=== PATIENT | female | born 1950 | race Caucasian/White ===

== ENCOUNTER → 2017-04-01 | Outpatient (CLI) | payer BC ==
[~2017-04-01] MED LIST: B CO1CAP PO; CALC-656 PO; CHOL10002 PO; CHOL200035 PO; CHOL50003 PO; ESCI5TAB PO; ESCT10T PO; ESTR1PAT32 TD; FERR240T9 PO; FISH OIL 1,2001 EAC1 PO; KRIL1CAP12 PO; LEVO75TA6 PO; LVT.05T PO; MAGN250T7 PO; MULT-974 PO; NF-ESOM40C PO; NIAC1CAP PO; OXYC-12 PO; ROSU5TAB PO; UBID1CAP51 PO; UBID200C PO; VIT1TABL26 PO; [UNRECOGNIZED DRUG - CODE] PO
--- NOTE | 2017-04-01 14:33 | Diagnostic Imaging Report ---
Bilateral screening mammogram 2D views with tomosynthesis The current study was also evaluated with a Computer Aided Detection (CAD) system. INDICATION: Screening. No current complaints stated on the questionnaire. COMPARISON: 01/23/2016. FINDINGS: Bilateral symmetric appearing retropectoral breast implants are seen. There are heterogeneously dense breast parenchymal densities noted which may decrease mammographic sensitivity. Benign-appearing calcifications are seen. Allowing for technique and positional differences, no suspicious change is seen. IMPRESSION: No significant change. ACR BI-RADS Category 2: Benign findings. Result letter will be mailed to the patient. Note: At least 10% of breast cancer is not imaged by mammography. Dictated by: Dictated on workstation # [id number]
== END ==
LOC: RAD 10:45
PROVIDERS: ATTEND Family Medicine
DX: Z12.31 Encounter for screening mammogram for malignant neoplasm of breast (principal)
CPT/HCPCS: 77067

== ENCOUNTER → 2017-12-10 | Outpatient (CLI) | payer MEDICARE ==
--- NOTE | 2017-12-10 20:05 | Diagnostic Imaging Report ---
INDICATION: Cough and congestion for several months. TECHNIQUE: Two-view chest at 1:38 p.m. CORRELATION STUDY: 08/31/2008. FINDINGS: The heart size, mediastinal configuration, and pulmonary vasculature are within normal limits. The lungs are clear with no consolidating infiltrate. There is no significant pleural effusion or pneumothorax. Relatively symmetric increased density at the lung apices, right greater than left, likely overlapping shadows of the anterior first ribs. Very questionable nodule which may correspond to this area superimposed over the superior thoracic spine as well. Mild rightward curvature of the thoracic spine. Partial visualization of the lumbar spinal fixation hardware. Bilateral breast implants are present. IMPRESSION: 1. Negative for acute cardiopulmonary abnormality. 2. There is slight nodularity suggested about the lung apices. This may very well be attributed to overlapping summation shadows of the first rib. However, given potential corresponding nodule in the lateral projection, lung apical nodule is not excluded. Either short-term followup two-view chest imaging to include apical lordotic views or CT imaging would be recommended. Dictated by: Dictated on workstation # [id number]
== END ==
LOC: RAD 12:35
PROVIDERS: ATTEND Family Medicine
DX: R05 Cough (principal); R09.89 Other specified symptoms and signs involving the circulatory and respiratory systems
CPT/HCPCS: 71046

== ENCOUNTER → 2017-12-24 | Outpatient (CLI) | payer MEDICARE ==
--- NOTE | 2017-12-24 10:29 | Diagnostic Imaging Report ---
PROCEDURE: CT chest without contrast. TECHNIQUE: Multiple contiguous axial images were obtained through the chest without the use of intravenous contrast. INDICATION: Pneumonia and cough. COMPARISON: Comparison is made with prior chest radiograph from 12/10/2017. No prior CT chest studies available for comparison. FINDINGS: No axillary lymphadenopathy is detected. Hilar and mediastinal evaluation is limited without intravenous contrast. No gross abnormality is seen. No pericardial or pleural fluid is identified. The central airways are patent. Pulmonary parenchyma is unremarkable. No infiltrates are seen. No nodule or mass is identified. The upper abdomen is unremarkable. IMPRESSION: Essentially unremarkable noncontrast CT of the chest. No pulmonary infiltrates or masses are seen. Dictated by: Dictated on workstation # [id number]
--- NOTE | 2017-12-24 11:08 | Diagnostic Imaging Report ---
INDICATION: Routine screening. COMPARISON: 04/01/2017 and 01/23/2016. TECHNIQUE: 2D and 3D bilateral screening mammography was performed with CAD. FINDINGS: Bilateral breast implants are again noted. The contours appear smooth. No definite evidence of extracapsular rupture is seen. Scattered fibroglandular densities are identified in both breasts. The parenchymal pattern is stable. There are benign calcifications present. No mass or malignant appearing microcalcifications are seen. The axillae are unremarkable. IMPRESSION: No mammographic features suspicious for malignancy are identified. ACR BI-RADS Category 2: Benign findings. Result letter will be mailed to the patient. Note: At least 10% of breast cancer is not imaged by mammography. Dictated by: Dictated on workstation # [id number]
== END ==
LOC: RAD 09:09
PROVIDERS: ATTEND Family Medicine
DX: Z12.31 Encounter for screening mammogram for malignant neoplasm of breast (principal)
CPT/HCPCS: 71250; 77067

== ENCOUNTER → 2018-10-10 | Outpatient (CLI) | payer MEDICARE ==
--- NOTE | 2018-10-10 16:29 | Diagnostic Imaging Report ---
INDICATION: Thoracic pain. FINDINGS: AP, lateral, and swimmer's views were obtained. As noted on the chest exam of 12/10/2017, there is mild S-type scoliosis of the thoracic spine with mild levoscoliosis of the upper thoracic spine and mild/moderate dextroscoliosis of the lower thoracic spine. There is no fracture or acute bony abnormality identified. The intervertebral disc spaces are fairly well maintained. There is no sign of a paraspinal mass. IMPRESSION: 1. There is no evidence for an acute bony abnormality. 2. There is mild/moderate S-type scoliosis of the thoracic spine. 3. If clinical concern regarding an underlying abnormality persists and further imaging is desired, then MRI will be recommended. Dictated by: Dictated on workstation # [id number]
== END ==
LOC: RAD 13:54
PROVIDERS: ATTEND Family Medicine
DX: M41.84 Other forms of scoliosis, thoracic region (principal)
CPT/HCPCS: 72072

== ENCOUNTER → 2018-12-11 | Outpatient (CLI) | payer MEDICARE ==
--- NOTE | 2018-12-11 08:58 | Diagnostic Imaging Report ---
CLINICAL INDICATION: Patient with globus sensation and right thyroid enlargement. COMPARISONS: None. FINDINGS: THYROID NODULES: None. THYROID GLAND: The thyroid gland has normal size, shape and echogenicity. The right lobe measures 4.4 cm x 1.1 cm x 1.1 cm and the left lobe measures 4.5 cm x 1.0 cm x 0.8 cm in their three dimensions. ISTHMUS: The isthmus is unremarkable and measures 1.6 mm in thickness. IMPRESSION: Unremarkable thyroid ultrasound exam. Dictated by: Dictated on workstation # [id number]
== END ==
LOC: RAD 07:55
PROVIDERS: ATTEND Family Medicine
DX: E04.9 Nontoxic goiter, unspecified (principal); R09.89 Other specified symptoms and signs involving the circulatory and respiratory systems
CPT/HCPCS: 76536

== ENCOUNTER → 2019-01-07 | Outpatient (CLI) | payer MEDICARE ==
--- NOTE | 2019-01-07 12:32 | Diagnostic Imaging Report ---
INDICATION: Routine screening. COMPARISON: 12/24/2017 and 04/01/2017. TECHNIQUE: 2D and 3D bilateral screening mammography was performed with CAD. FINDINGS: Scattered fibroglandular densities are identified bilaterally. Bilateral subpectoral implants are again noted. The implant contours are smooth. There are benign calcifications bilaterally. No mass or malignant appearing microcalcifications are seen. The axillae are unremarkable. IMPRESSION: No mammographic features suspicious for malignancy are identified. ACR BI-RADS Category 2: Benign findings. Result letter will be mailed to the patient. Note: At least 10% of breast cancer is not imaged by mammography. Dictated by: Dictated on workstation # [id number]
== END ==
LOC: RAD 10:25
PROVIDERS: ATTEND Family Medicine
DX: Z12.31 Encounter for screening mammogram for malignant neoplasm of breast (principal)
CPT/HCPCS: 77067

== ENCOUNTER 2019-01-26 06:01 | Outpatient (CLI) | payer MEDICARE ==
[~2019-01-26] VITALS: Ht 165.1 cm; Wt 69.9 kg
[2019-01-26] MEDS ORDERED: NIAC500T24 PO (11:49)
[2019-01-26] MEDS ORDERED: ZEAX100P PO (11:49)
[2019-01-26] MEDS ORDERED: [UNRECOGNIZED DRUG - CODE] PO (11:49)
[2019-01-26] MEDS ORDERED: UBID300C PO (11:49)
[2019-01-26] MEDS ORDERED: ROSU5TAB13 PO (11:49)
[2019-01-26] MEDS ORDERED: LEVO75TA6 PO (11:49)
[2019-01-26] MEDS ORDERED: LORA10TA76 PO (11:49)
[2019-01-26] MEDS ORDERED: MULT-178 PO (11:49)
[2019-01-26] MEDS ORDERED: IRON15TA3 PO (11:49)
[2019-01-26] MEDS ORDERED: LUTE20CA2 PO (11:49)
[2019-01-26] MEDS ORDERED: PANT40TA3 PO (11:49)
[2019-01-26] MEDS ORDERED: SUCR1TAB36 PO (11:49)
[2019-01-26] MEDS ORDERED: LEVO1CAP PO (11:49)
[2019-01-26] MEDS ORDERED: FLUT9.9S NS (11:49)
[2019-01-26] MEDS ORDERED: LACT1CAP64 PO (11:53)
== END 2019-01-26 12:50 | disposition home or self-care (01) ==
LOC: PREOP 06:01
PROVIDERS: ATTEND Surgery
DX: Z01.818 Encounter for other preprocedural examination (principal)

== ENCOUNTER 2019-01-28 11:15 | Day surgery (SDC) | payer MEDICARE ==
[2019-01-28] VITALS (11 sets, daily range): BP systolic 93–133; BP diastolic 55–69
[~2019-01-28] VITALS: Ht 165.1 cm; Wt 69.9 kg
[~2019-01-28 11:15] MED LIST changes: +FLUT9.9S NS; +IRON15TA3 PO; +LACT1CAP64 PO; +LEVO1CAP PO; +LORA10TA76 PO; +LUTE20CA2 PO; +MULT-178 PO; +NIAC500T24 PO; +PANT40TA3 PO; +ROSU5TAB13 PO; +SUCR1TAB36 PO; +UBID300C PO; +ZEAX100P PO; +[UNRECOGNIZED DRUG - CODE] PO
[2019-01-28] MEDS ORDERED: NS IV 500 ML 500 ML ONE (11:17)
[2019-01-28] MEDS ORDERED: LIDOCAINE JELLY 2% 6 ML SYRINGE ONE (11:22)
[2019-01-28] MEDS ORDERED: MIDAZOLAM 2 MG/2 ML (VERSED) VIAL ONE ×4 (11:22→11:23)
[2019-01-28] MEDS ORDERED: fentaNYL INJECTION 100 MCG/2 ML AMP ONE (11:22)
[2019-01-28] MEDS ORDERED: HURRICAINE EXT TUBE (BENZOCAINE) ONE (11:23)
--- NOTE | 2019-01-28 11:27 | Conscious Sedation/ASA ---
Conscious Sedation Pre-Proced Time 11:20 ASA Score 2 For ASA 3 and 4: Consider anesthesia and medical clearance. Also, for patients with a history of failed moderate sedation consider anesthesia. Airway Lungs Heart ASA score ASA 1: a normal healthy patient ASA 2: a patient with a mild systemic disease (mid diabetes, controlled hypertension, obesity ASA 3: a patient with a severe systemic disease that limits activity (angina, COPD, prior Myocardial infarction) ASA 4: a patient with an incapacitating disease that is a constant threat to life (CHF, renal failure) ASA 5: a moribund patient not expected to survive 24 hrs. (ruptured aneurysm) ASA 6: a declared brain- patient whose organs are being harvested. For emergent operations, add the letter E after the classification Mallampati Classification Grade 2 Sedation Plan Analgesia, Amnesia, Plan communicated to team members, Discussed options with patient/fam, Discussed risks with patient/fam The patient is an appropriate candidate to undergo the planned procedure, sedation, and anesthesia. The patient immediately re-assessed prior to indication. INDIA OLGUIN MD Jan 28, 2019 11:27
--- NOTE | 2019-01-28 11:28 | Progress Note-Pre Operative ---
Pre-Operative Progress Note H&P Reviewed The H&P was reviewed, patient examined and no changes noted. Date Seen by Provider: Jan 28, 2019 Time Seen by Provider: 11:20 Date H&P Reviewed: Jan 28, 2019 Time H&P Reviewed: 11:20 Pre-Operative Diagnosis: GERD, dysphagia INDIA OLGUIN MD Jan 28, 2019 11:28
--- OUTSIDE RECORDS SUMMARY | 2019-01-28 11:28 | XMS REPORT | CCD ---
Author Author [facility] Organization [facility] Address [address] [place] [address] Phone Care Team Providers Care Resolution Expert Name Role Phone PP Unavailable CCM Unavailable Summary Purpose Interface Exchange Insurance Providers Payer name Policy type / Coverage type Covered libertarian ID Effective Begin Date Effective End Date [facility] [id number] 2014 Unknown Family History Family History data not found Social History No Social History data Allergies, Adverse Reactions, Alerts Allergies, Adverse Reactions, Alerts data not found Past Medical History Illness Codes Condition Status Onset Date Resolved Date VACCIN FOR INFLUENZA ICD- 9: V04.81 ICD-10: Z23 Active 03/28/2015 Unknown VACCIN STREP PNEUMONIAE ICD-9: V03.82 ICD-10: Z23 Active 06/15/2014 Unknown Acute UTI ICD-9: 599.0 Active 03/10/2012 Unknown ACUTE URI ICD-9: 465.9 Active 06/15/2011 Unknown COUGH ICD-9: 786.2 Active 06/15/2011 Unknown VACCIN FOR INFLUENZA ICD- 9: V04.81 Active 03/27/2011 Unknown Problems Condition Codes Effective Dates Condition Status VACCIN FOR INFLUENZA ICD- 9: V04.81 ICD-10: Z23 03/28/2015 Active VACCIN STREP PNEUMONIAE ICD-9: V03.82 ICD-10: Z23 06/15/2014 Active Acute UTI ICD-9: 599.0 03/10/2012 Active ACUTE URI ICD-9: 465.9 06/15/2011 Active COUGH ICD-9: 786.2 06/15/2011 Active VACCIN FOR INFLUENZA ICD- 9: V04.81 03/27/2011 Active Medications Medication Codes Instructions Start Date Stop Date Status Fill Instructions Deplin (algal oil) 15 mg-90.314 mg capsule RxNorm: TAKE ONE CAPSULE BY MOUTH ONE TIME DAILY 12/05/2016 02/27/2018 Active Deplin (algal oil) 15 mg-90.314 mg capsule RxNorm: 1 Capsule(s) PO daily 12/27/2015 12/04/2016 Inactive Deplin (algal oil) 15 mg-90.314 mg capsule RxNorm: 1 Capsule(s) PO daily 01/26/2015 04/25/2015 Inactive Retin-A 0.1 % topical cream RxNorm: 026318 1 Application TOP BID apply to affected skin bid prn 07/29/2013 11/25/2013 Inactive dispense 30 day supply Retin-A 0.1 % topical cream RxNorm: 739807 1 Application TOP BID apply to affected skin bid prn 07/29/2013 07/28/2013 Inactive dispense 30 day supply Cipro 500 mg tablet RxNorm: 366954 1 Tablet(s) PO BID 03/10/2012 03/16/2012 Inactive Cipro 500 mg tablet RxNorm: 279896 1 Tablet(s) PO BID 03/10/2012 03/09/2012 Inactive Rocephin 500 mg Solution for Injection RxNorm: 963819 1 Milliliter(s) Inj 06/15/2011 06/15/2011 Inactive Influenza Virus Vaccine 0.5 mL RxNorm: IM 03/28/2011 03/28/2011 Inactive zoster vaccine live (PF) 19,400 unit Sub-Q Soln RxNorm: 5556838 1 SQ No Start Date Active Medication Administered Medication Codes Instructions Start Date Status Rocephin 500 mg Solution for Injection RxNorm: 353565 1Milliliter 06/15/2011 No longer Active Influenza Virus Vaccine 0.5 mL RxNorm: 03/28/2011 No longer Active Immunizations Vaccine Codes Date Status Influenza CVX: 141 03/28/2015 completed Pneumococcal (Adult) CVX: 33 06/15/2014 completed Influenza CVX: 141 03/23/2014 completed Influenza CVX: 141 03/12/2013 completed Influenza CVX: 141 04/02/2012 completed Zoster CVX: 121 12/27/2011 completed Influenza CVX: 141 03/27/2011 completed Assessments Condition Codes Effective Dates VACCIN FOR INFLUENZA ICD-10: Z23 ICD-9: V04.81 03/28/2015 VACCIN STREP PNEUMONIAE ICD-10: Z23 ICD-9: V03.82 06/15/2014 Acute UTI ICD-9: 599.0 03/10/2012 COUGH ICD-9: 786.2 06/15/2011 ACUTE URI ICD-9: 465.9 06/15/2011 VACCIN FOR INFLUENZA ICD-9: V04.81 03/27/2011 Reason For Visit Reason For Visit Effective Dates Notes vaccination against influenza 03/28/2015 vaccination against pneumonia 06/15/2014 vaccination against influenza 03/23/2014 vaccination against influenza 03/27/2011 Results Observation Observation Code Item Item Code Result Date Free T4 Ocs747 FREE T4 1.04 ng/dL 08/15/2015 Tsh Ord6 hTSH II 0.60 uIU/mL 08/15/2015 Comp Metabolic Ood987 NA 141 mEq/L 08/15/2015 Comp Metabolic Mhj992 K 5.1 mEq/L 08/15/2015 Comp Metabolic Vjm022 CL 105 mEq/L 08/15/2015 Comp Metabolic Rwu037 CO2 32.0 mEq/L 08/15/2015 Comp Metabolic Amn220 ANION GAP 9 08/15/2015 Comp Metabolic Qgw311 GLUCOSE 89 mg/dL 08/15/2015 Comp Metabolic Fsg576 Creat 1.0 mg/dL 08/15/2015 Comp Metabolic Smw258 eGFR 61 ml/min/1.73m2 08/15/2015 Comp Metabolic Dcs086 BUN 15 mg/dL 08/15/2015 Comp Metabolic Bdr197 B/C Ratio 15.3 Ratio 08/15/2015 Comp Metabolic Ohs357 CALCIUM 9.4 mg/dL 08/15/2015 Comp Metabolic Xdp263 ALK PHOS 50 U/L 08/15/2015 Comp Metabolic Xbq954 AST(SGOT) 18 U/L 08/15/2015 Comp Metabolic Lxo449 ALT(SGPT) 12 U/L 08/15/2015 Comp Metabolic Pwr904 BILI T 0.4 mg/dL 08/15/2015 Comp Metabolic Coq305 ALBUMIN 3.9 g/dL 08/15/2015 Comp Metabolic Ihg730 TPRO 6.2 g/dL 08/15/2015 Comp Metabolic Nki160 GLOB 2.3 g/dL 08/15/2015 Comp Metabolic Lep311 A/G Ratio 1.7 Ratio 08/15/2015 Comp Metabolic Kdy189 Osmo 282 mOsmo 08/15/2015 Cbc With Differential Ord2 WBC 3.19 K/ul 08/15/2015 Cbc With Differential Ord2 RBC 4.11 M/ul 08/15/2015 Cbc With Differential Ord2 HGB 13.0 g/dl 08/15/2015 Cbc With Differential Ord2 Neut% 26.4 % 08/15/2015 Cbc With Differential Ord2 HCT 39.1 % 08/15/2015 Cbc With Differential Ord2 MCV 95.1 fl 08/15/2015 Cbc With Differential Ord2 Lymph% 52.7 % 08/15/2015 Cbc With Differential Ord2 MCH 31.6 pg 08/15/2015 Cbc With Differential Ord2 Casey% 15.0 % 08/15/2015 Cbc With Differential Ord2 MCHC 33.2 pg 08/15/2015 Cbc With Differential Ord2 Eos% 5.0 % 08/15/2015 Cbc With Differential Ord2 PLT 301 K/ul 08/15/2015 Cbc With Differential Ord2 Baso% 0.9 % 08/15/2015 Cbc With Differential Ord2 RDW 13.7 % 08/15/2015 Cbc With Differential Ord2 Neut ABS# 0.84 K/ul 08/15/2015 Cbc With Differential Ord2 Lymph ABS# 1.68 K/ul 08/15/2015 Cbc With Differential Ord2 Casey ABS# 0.5 K/ul 08/15/2015 Cbc With Differential Ord2 Eos ABS# 0.2 K/ul 08/15/2015 Cbc With Differential Ord2 Baso ABS# 0.0 K/ul 08/15/2015 Cbc With Differential Ord2 New Analyzer Notice Please note new ref ranges starting 07-06-2015 due to implemntation of new five part differential hematolgy analyzer. 08/15/2015 Manual Differential Ord52 D-Neutr 27 % 08/15/2015 Manual Differential Ord52 D-Lymph 63 % 08/15/2015 Manual Differential Ord52 D-Casey 6 % 08/15/2015 Manual Differential Ord52 D-Eos 4 % 08/15/2015 Manual Differential Ord52 D-1 RBC, PLT NORMAL 08/15/2015 Lipid Ord30 CHOL 183 mg/dL 08/15/2015 Lipid Ord30 HDL 86.0 mg/dl 08/15/2015 Lipid Ord30 TRIG 48 mg/dL 08/15/2015 Lipid Ord30 LDL 87 mg/dL 08/15/2015 Lipid Ord30 C/HDL 2.1 Ratio 08/15/2015 UA 96109 Specific [place] 1.010 DateTime(Free Text in ) UA 95061 PH 6 DateTime(Free Text in Apr) UA 70949 GLUCOSE neg DateTime(Free Text in Aprima) UA 77146 Protein 1+ DateTime(Free Text in ) UA 69829 Blood 3+ DateTime(Free Text in ) UA 74411 Bilirubin neg DateTime(Free Text in ) UA 07473 Ketones neg DateTime(Free Text in ) UA 54511 Urobilinogen neg DateTime(Free Text in ) UA 82690 Nitrite postive DateTime(Free Text in ) UA 32371 Leukocytes 3+ DateTime(Free Text in ) Review of Systems No Review of Systems data Physical Exam No Physical Exam data Procedures Procedure Codes Date IMMUNIZATION ADMIN CPT-4: 85531Rqeygwo 03/28/2015 IIV4 FLU VACC NO PRESERV ID Formatting Model/CDA Sections, Assigned to/Breonna Barrow SNOMED CT: 55474875 CPT-4: 05052Fkcgisu 03/28/2015 ADMIN PNEUMOCOCCAL VACCINE SNOMED CT: 87198365 CPT-4: J6507Movufqj 06/15/2014 Pneumococcal Polysaccharide Vaccine, 23-Valent, Ad Assigned to CPT-4: 29242Mwochyw 06/15/2014 IMMUNIZATION ADMIN CPT-4: 00295Ttzetrw 03/23/2014 FLU VACC 4 RAISA 3 YRS PLUS IM SNOMED CT: 54226263 CPT-4: 85775Viiaovr 03/23/2014 URINALYSIS NONAUTO W/O SCOPE CPT-4: 78513Iijrqiz 03/10/2012 THER/PROPH/DIAG INJ SC/IM CPT-4: 99945Fuknhxj 06/15/2011 ROCEPHIN, PER 250 MG CPT-4: A2010Btjlavm 06/15/2011 Influenza Virus Vaccine, Split Virus, >3 Yrs, IM CPT-4: 51755Jqnrhts 03/27/2011 IMMUNIZATION ADMIN CPT-4: 25198Omasbml 03/27/2011 Vital Signs No Vital signs data Functional Status No Functional Status data History of Present Illness No History of Present Illness data Advance Directives No Advance Directive data Encounters No Encounter data Plan of Care Planned Activity Notes Codes Status Date Appointment: Injection 03/28/2015 Patient Education: Patient Medication Summary Completed 03/28/2015 Patient Education: Patient Medication Summary Completed 06/15/2014 [facility] [phone] [id number] [facility] 03/23/2014 Patient Education: Patient Medication Summary Completed 03/23/2014 [facility] [phone] [facility] Lab Draw 03/10/2012 Patient Education: Patient Medication Summary Completed 03/10/2012 Patient Education: Patient Medication Summary Completed 06/15/2011 Patient Education: Patient Medication Summary Completed 03/27/2011 Instructions No Instructions
--- OUTSIDE RECORDS SUMMARY | 2019-01-28 11:28 | XMS REPORT | Clinical Summary ---
Author Author [facility] Organization [facility] Address Unknown Phone Unavailable Care Team Providers Care Vac Press Operator Name Role Phone Doctor, Miscellaneous Unavailable Unavailable Candi [facility]att MD PCP Source Comments Some departments are not documenting in the electronic medical record. If you d o not see the information that you expected, contact Release of Information in [facility] Information Management department at [phone] for further assistan ce in locating additional records.[facility] Allergies Not on File Medications Not on file Active Problems Not on file Social History Date Tobacco Use Types Packs/Day Years Used Never Assessed Sex Assigned at Date Recorded Not on file Industry Job Start Date Occupation Not on file Not on file Not on file Travel End Travel History Travel Start No recent travel history available. Last Filed Vital Signs Not on file Plan of Treatment Health Maintenance Due Date Last Done Comments HEPATITIS C SCREENING 1950 PHYSICAL (COMPREHENSIVE) 12/02/1959 EXAM DTAP/TDAP VACCINES (1 - 1970 Tdap) COLORECTAL CANCER 2002 SCREENING SHINGLES RECOMBINANT 2002 VACCINE (1 of 2) BREAST CANCER SCREENING 01/22/2017 01/23/2016, 08/24/2014, 11/05/2013, Additional history exists OSTEOPOROSIS 2017 SCREENING/MONITORING PNEUMONIA (PCV13/PPSV23) 2017 VACCINES (1 of 2 - PCV13) INFLUENZA VACCINE 03/24/2019 Results Not on filefrom Last 3 Months Insurance Type Payer Benefit Subscriber ID Effective Phone Address Plan / Dates Group PPO BC[facility] xxxxxxxxxxxx 2014-P [facility] BLUE Advance Directives Patient Career Technical Education Instructor Explanation Type Date Recorded Advance 11/04/2013 8:27 AM Directive/DPOA
--- NOTE | 2019-01-28 11:29 | Discharge Inst-Surgical ---
D/C Lap Instructions-CLAU Follow Up Activity as tolerated High Fiber Diet 25g or more per day Avoid Alcohol, Caffeine, Spicy [place] and Acid foods. Drink 64 fluid oz or more of fluids per day. Symptoms to Report: Fever over 101 degree F, Nausea/Vomiting If any problems/questions: Contact your physician or go to Emergency Room INDIA OLGUIN MD Jan 28, 2019 11:29
--- OUTSIDE RECORDS SUMMARY | 2019-01-28 11:29 | XMS REPORT | CCD ---
Author Author [facility]i Wyatt Organization [facility] Address [address] [place] [address] Phone Care Team Providers Care Grinder Operator External Tool Name Role Phone PP Unavailable CCM Unavailable Summary Purpose Interface Exchange Insurance Providers Payer name Policy type / Coverage type Covered republican ID Effective Begin Date Effective End Date [facility] [id number] 2014 Unknown Family History Family History data [...] Start Date Stop Date Status Fill Instructions metronidazole 500 mg tablet RxNorm: 393351 1 Tablet(s) PO TID 06/26/2018 07/09/2018 Active metronidazole 500 mg tablet RxNorm: 007682 1 Tablet(s) PO TID 06/26/2018 06/25/2018 Inactive Deplin (algal oil) 15 mg-90.314 mg capsule RxNorm: TAKE ONE CAPSULE BY MOUTH ONE TIME DAILY 12/05/2016 02/27/2018 Inactive Deplin (algal oil) 15 mg-90.314 mg capsule RxNorm: 1 Capsule(s) PO daily 12/27/2015 12/04/2016 Inactive Deplin (algal oil) 15 mg-90.314 mg capsule RxNorm: 1 Capsule(s) PO daily 01/26/2015 04/25/2015 Inactive Retin-A 0.1 % topical cream RxNorm: 966177 1 Application TOP BID apply to affected skin bid prn 07/29/2013 11/25/2013 Inactive dispense 30 day supply Retin-A 0.1 % topical cream RxNorm: 071606 1 Application TOP BID apply to affected skin bid prn 07/29/2013 07/28/2013 Inactive dispense 30 day supply Cipro 500 mg tablet RxNorm: 882921 1 Tablet(s) PO BID 03/10/2012 03/16/2012 Inactive Cipro 500 mg tablet RxNorm: 113054 1 Tablet(s) PO BID 03/10/2012 03/09/2012 Inactive Rocephin 500 mg Solution for Injection RxNorm: 500171 1 Milliliter(s) Inj 06/15/2011 06/15/2011 Inactive Influenza Virus Vaccine 0.5 mL RxNorm: IM 03/28/2011 03/28/2011 Inactive zoster vaccine live (PF) 19,400 unit Sub-Q Soln RxNorm: 1008283 1 SQ No Start Date Active Medication Administered Medication Codes Instructions Start Date Status Rocephin 500 mg Solution for Injection RxNorm: 499587 1Milliliter 06/15/2011 No longer Active Influenza Virus [...] V03.82 06/15/2014 Acute UTI ICD-9: 599.0 03/10/2012 ACUTE URI ICD-9: 465.9 06/15/2011 COUGH ICD-9: 786.2 06/15/2011 VACCIN FOR INFLUENZA ICD-9: V04.81 03/27/2011 Reason For Visit Reason For Visit Effective Dates Notes vaccination against influenza 03/28/2015 vaccination against pneumonia 06/15/2014 vaccination against influenza 03/23/2014 vaccination against influenza 03/27/2011 Results Observation Observation Code Item Item Code Result Date Free T4 Sbm010 FREE T4 1.04 ng/dL 08/15/2015 Tsh Ord6 hTSH II 0.60 uIU/mL 08/15/2015 Comp Metabolic Lrc635 NA 141 mEq/L 08/15/2015 Comp Metabolic Ofc693 K 5.1 mEq/L 08/15/2015 Comp Metabolic Ccl282 CL 105 mEq/L 08/15/2015 Comp Metabolic Yhn874 CO2 32.0 mEq/L 08/15/2015 Comp Metabolic Yjw840 ANION GAP 9 08/15/2015 Comp Metabolic Rgg482 GLUCOSE 89 mg/dL 08/15/2015 Comp Metabolic Azq242 Creat 1.0 mg/dL 08/15/2015 Comp Metabolic Yad521 eGFR 61 ml/min/1.73m2 08/15/2015 Comp Metabolic Fmx373 BUN 15 mg/dL 08/15/2015 Comp Metabolic Ica548 B/C Ratio 15.3 Ratio 08/15/2015 Comp Metabolic Krm607 CALCIUM 9.4 mg/dL 08/15/2015 Comp Metabolic Llj998 ALK PHOS 50 U/L 08/15/2015 Comp Metabolic Fsd563 AST(SGOT) 18 U/L 08/15/2015 Comp Metabolic Rqb373 ALT(SGPT) 12 U/L 08/15/2015 Comp Metabolic Fxs498 BILI T 0.4 mg/dL 08/15/2015 Comp Metabolic Wcu935 ALBUMIN 3.9 g/dL 08/15/2015 Comp Metabolic Jml957 TPRO 6.2 g/dL 08/15/2015 Comp Metabolic Mpx543 GLOB 2.3 g/dL 08/15/2015 Comp Metabolic Fbk303 A/G Ratio 1.7 Ratio 08/15/2015 Comp Metabolic Nlm742 Osmo 282 mOsmo 08/15/2015 Cbc With Differential Ord2 WBC 3.19 K/ul 08/15/2015 Cbc With Differential Ord2 RBC 4.11 M/ul 08/15/2015 Cbc With Differential Ord2 HGB 13.0 g/dl 08/15/2015 Cbc With Differential Ord2 HCT 39.1 % 08/15/2015 Cbc With Differential Ord2 Neut% 26.4 % 08/15/2015 Cbc With Differential Ord2 MCV 95.1 fl 08/15/2015 Cbc With Differential Ord2 Lymph% 52.7 % 08/15/2015 Cbc With Differential Ord2 MCH 31.6 pg 08/15/2015 Cbc With Differential Ord2 [place]% 15.0 % 08/15/2015 Cbc With Differential Ord2 [...] 1.68 K/ul 08/15/2015 Cbc With Differential Ord2 [place] ABS# 0.5 K/ul 08/15/2015 Cbc With Differential [...] D-Lymph 63 % 08/15/2015 Manual Differential Ord52 D-[place] 6 % 08/15/2015 Manual Differential Ord52 D-Eos 4 % 08/15/2015 Manual Differential Ord52 D-1 RBC, PLT NORMAL 08/15/2015 Lipid Ord30 CHOL 183 mg/dL 08/15/2015 Lipid Ord30 HDL 86.0 mg/dl 08/15/2015 Lipid Ord30 TRIG 48 mg/dL 08/15/2015 Lipid Ord30 LDL 87 mg/dL 08/15/2015 Lipid Ord30 C/HDL 2.1 Ratio 08/15/2015 UA 77991 Specific [place] 1.010 DateTime(Free Text in ) UA 31398 PH 6 DateTime(Free Text in ) UA 81133 GLUCOSE neg DateTime(Free Text in ) UA 24075 Protein 1+ DateTime(Free Text in ) UA 52847 Blood 3+ DateTime(Free Text in ) UA 98708 Bilirubin neg DateTime(Free Text in ) UA 78787 Ketones neg DateTime(Free Text in ) UA 11108 Urobilinogen neg DateTime(Free Text in ) UA 99360 Nitrite postive DateTime(Free Text in ) UA 14715 Leukocytes 3+ DateTime(Free Text in ) Review of Systems No Review of Systems data Physical Exam No Physical Exam data Procedures Procedure Codes Date IMMUNIZATION ADMIN CPT- 4: 94165 03/28/2015 IIV4 FLU VACC NO PRESERV ID Formatting Model/CDA Sections, Assigned to/Breonna Barrow SNOMED CT: 63444501 CPT-4: 38990Jwibkpb 03/28/2015 ADMIN PNEUMOCOCCAL VACCINE SNOMED CT: 04128602 CPT-4: G0009 06/15/2014 Pneumococcal Polysaccharide Vaccine, 23-Valent, Ad Assigned to CPT-4: 24243Yadwngy 06/15/2014 IMMUNIZATION ADMIN CPT- 4: 09030 03/23/2014 FLU VACC 4 RAISA 3 YRS PLUS IM SNOMED CT: 83828716 CPT-4: 40840 03/23/2014 URINALYSIS NONAUTO W/O SCOPE CPT-4: 21711 03/10/2012 THER/PROPH/DIAG INJ SC/IM CPT-4: 40924 06/15/2011 ROCEPHIN, PER 250 MG CPT- 4: J0696 06/15/2011 Influenza Virus Vaccine, Split Virus, >3 Yrs, IM CPT-4: 10483 03/27/2011 IMMUNIZATION ADMIN CPT- 4: 13052 03/27/2011 Vital Signs No Vital signs data Functional Status No Functional Status data History of Present Illness No History of Present Illness data Advance Directives No Advance Directive data Encounters No Encounter data Plan of Care Planned Activity Notes Codes Status Date Appointment: Injection 03/28/2015 Patient Education: Patient Medication Summary Completed 03/28/2015 Patient Education: Patient Medication Summary Completed 06/15/2014 [facility]ment[facility] [phone] [facility] [facility] 03/23/2014 Patient Education: Patient Medication Summary Completed 03/23/2014 App[facility]ment: [phone] [facility] Lab Draw 03/10/2012 Patient Education: Patient Medication Summary Completed 03/10/2012 Patient Education: Patient Medication Summary Completed 06/15/2011 Patient Education: Patient Medication Summary Completed 03/27/2011 Instructions No Instructions
--- OUTSIDE RECORDS SUMMARY | 2019-01-28 11:29 | XMS REPORT | CCD ---
Author Author Candi Wyatt Organization [facility] Address [address] [place] [address] Phone Care Team Providers Care Steel Rod Buster Name Role Phone PP Unavailable CCM Unavailable Summary Purpose Interface Exchange Insurance Providers Payer name Policy type / Coverage type Covered constitution party ID Effective Begin Date Effective End Date [facility] [id number] 2014 Unknown Family History Family History data [...] Start Date Stop Date Status Fill Instructions Tamiflu 75 mg capsule RxNorm: 402789 1 Capsule(s) PO daily 09/10/2018 09/19/2018 Active Tamiflu 75 mg capsule RxNorm: 424908 1 Capsule(s) PO daily 09/10/2018 09/09/2018 Inactive metronidazole 500 mg tablet RxNorm: 493532 1 Tablet(s) PO TID 06/26/2018 06/25/2018 Inactive metronidazole 500 mg tablet RxNorm: 344742 1 Tablet(s) PO TID 06/26/2018 07/09/2018 Inactive Deplin (algal oil) 15 mg-90.314 mg capsule RxNorm: TAKE ONE CAPSULE BY MOUTH ONE TIME DAILY 12/05/2016 02/27/2018 Inactive Deplin (algal oil) 15 mg-90.314 mg capsule RxNorm: 1 Capsule(s) PO daily 12/27/2015 12/04/2016 Inactive Deplin (algal oil) 15 mg-90.314 mg capsule RxNorm: 1 Capsule(s) PO daily 01/26/2015 04/25/2015 Inactive Retin-A 0.1 % topical cream RxNorm: 895700 1 Application TOP BID apply to affected skin bid prn 07/29/2013 11/25/2013 Inactive dispense 30 day supply Retin-A 0.1 % topical cream RxNorm: 663141 1 Application TOP BID apply to affected skin bid prn 07/29/2013 07/28/2013 Inactive dispense 30 day supply Cipro 500 mg tablet RxNorm: 310507 1 Tablet(s) PO BID 03/10/2012 03/16/2012 Inactive Cipro 500 mg tablet RxNorm: 585793 1 Tablet(s) PO BID 03/10/2012 03/09/2012 Inactive Rocephin 500 mg Solution for Injection RxNorm: 2061500 1 Milliliter(s) Inj 06/15/2011 06/15/2011 Inactive Influenza Virus Vaccine 0.5 mL RxNorm: IM 03/28/2011 03/28/2011 Inactive zoster vaccine live (PF) 19,400 unit Sub-Q Soln RxNorm: 3471576 1 SQ No Start Date Active Medication Administered Medication Codes Instructions Start Date Status Rocephin 500 mg Solution for Injection RxNorm: 9207912 1Milliliter 06/15/2011 No longer Active Influenza Virus [...] Item Item Code Result Date Free T4 Lst121 FREE T4 1.04 ng/dL 08/15/2015 Tsh Ord6 hTSH II 0.60 uIU/mL 08/15/2015 Comp Metabolic Xos892 NA 141 mEq/L 08/15/2015 Comp Metabolic Sdm259 K 5.1 mEq/L 08/15/2015 Comp Metabolic Wvo969 CL 105 mEq/L 08/15/2015 Comp Metabolic Nek135 CO2 32.0 mEq/L 08/15/2015 Comp Metabolic Sdz894 ANION GAP 9 08/15/2015 Comp Metabolic Xnl602 GLUCOSE 89 mg/dL 08/15/2015 Comp Metabolic Ejv009 Creat 1.0 mg/dL 08/15/2015 Comp Metabolic Uup569 eGFR 61 ml/min/1.73m2 08/15/2015 Comp Metabolic Dsx748 BUN 15 mg/dL 08/15/2015 Comp Metabolic Vmg140 B/C Ratio 15.3 Ratio 08/15/2015 Comp Metabolic Wgm458 CALCIUM 9.4 mg/dL 08/15/2015 Comp Metabolic Rid403 ALK PHOS 50 U/L 08/15/2015 Comp Metabolic Ubb359 AST(SGOT) 18 U/L 08/15/2015 Comp Metabolic Cso153 ALT(SGPT) 12 U/L 08/15/2015 Comp Metabolic Wvu771 BILI T 0.4 mg/dL 08/15/2015 Comp Metabolic Oec265 ALBUMIN 3.9 g/dL 08/15/2015 Comp Metabolic Zjg595 TPRO 6.2 g/dL 08/15/2015 Comp Metabolic Oym779 GLOB 2.3 g/dL 08/15/2015 Comp Metabolic Bcp490 A/G Ratio 1.7 Ratio 08/15/2015 Comp Metabolic Plq376 Osmo 282 mOsmo 08/15/2015 Cbc With Differential [...] 31.6 pg 08/15/2015 Cbc With Differential Ord2 [place]% 15.0 % 08/15/2015 Cbc With Differential Ord2 [...] 1.68 K/ul 08/15/2015 Cbc With Differential Ord2 [place] ABS# 0.5 K/ul 08/15/2015 Cbc With Differential [...] D-Lymph 63 % 08/15/2015 Manual Differential Ord52 D-[place] 6 % 08/15/2015 Manual Differential Ord52 D-Eos 4 % 08/15/2015 Manual Differential Ord52 D-1 RBC, PLT NORMAL 08/15/2015 Lipid Ord30 CHOL 183 mg/dL 08/15/2015 Lipid Ord30 HDL 86.0 mg/dl 08/15/2015 Lipid Ord30 TRIG 48 mg/dL 08/15/2015 Lipid Ord30 LDL 87 mg/dL 08/15/2015 Lipid Ord30 C/HDL 2.1 Ratio 08/15/2015 UA 27532 Specific [place] 1.010 DateTime(Free Text in Apr) UA 23885 PH 6 DateTime(Free Text in ) UA 36410 GLUCOSE neg DateTime(Free Text in Apr) UA 05327 Protein 1+ DateTime(Free Text in Apr) UA 04000 Blood 3+ DateTime(Free Text in Apr) UA 73684 Bilirubin neg DateTime(Free Text in ) UA 21546 Ketones neg DateTime(Free Text in ) UA 61185 Urobilinogen neg DateTime(Free Text in ) UA 83192 Nitrite postive DateTime(Free Text in ) UA 14145 Leukocytes 3+ DateTime(Free Text in ) Review of Systems No Review of Systems data Physical Exam No Physical Exam data Procedures Procedure Codes Date IMMUNIZATION ADMIN CPT- 4: 76682 03/28/2015 IIV4 FLU VACC NO PRESERV ID Formatting Model/CDA Sections, Assigned to/Breonna Barrow SNOMED CT: 52705784 CPT-4: 50307Hwcctvq 03/28/2015 ADMIN PNEUMOCOCCAL VACCINE SNOMED CT: 73359020 CPT-4: G0009 06/15/2014 Pneumococcal Polysaccharide Vaccine, 23-Valent, Ad Assigned to CPT-4: 03823Hhadkbr 06/15/2014 IMMUNIZATION ADMIN CPT- 4: 64940 03/23/2014 FLU VACC 4 RAISA 3 YRS PLUS IM SNOMED CT: 05447645 CPT-4: 17624 03/23/2014 URINALYSIS NONAUTO W/O SCOPE CPT-4: 19918 03/10/2012 THER/PROPH/DIAG INJ SC/IM CPT-4: 85122 06/15/2011 ROCEPHIN, PER 250 MG CPT- 4: J0696 06/15/2011 Influenza Virus Vaccine, Split Virus, >3 Yrs, IM CPT-4: 40609 03/27/2011 IMMUNIZATION ADMIN CPT- 4: 38231 03/27/2011 Vital Signs No Vital signs data Functional Status No Functional Status data History of Present Illness No History of Present Illness data Advance Directives No Advance Directive data Encounters No Encounter data Plan of Care Planned Activity Notes Codes Status Date Appointment: Injection 03/28/2015 Patient Education: Patient Medication Summary Completed 03/28/2015 Patient Education: Patient Medication Summary Completed 06/15/2014 [id number] [facility] 03/23/2014 Patient Education: Patient Medication Summary Completed 03/23/2014 App[facility]ment: [phone] Lab Draw 03/10/2012 Patient Education: Patient Medication Summary Completed 03/10/2012 Patient Education: Patient Medication Summary Completed 06/15/2011 Patient Education: Patient Medication Summary Completed 03/27/2011 Instructions No Instructions
--- OUTSIDE RECORDS SUMMARY | 2019-01-28 11:29 | XMS REPORT | Continuity of Care Document ---
Author Organization Unknown Address Unknown Phone Unavailable Allergies Active Description Code Type Severity Reaction Onset Reported/Identified Relationship to Patient Clinical Status Yes BANANAS BANANAS Unknown N/A 12/02/2013 Yes IVP DYE IVP DYE Unknown N/A 12/02/2013 Yes LEGUMES LEGUMES Unknown N/A 12/02/2013 Yes PEANUT BUTTER PEANUT BUTTER Unknown N/A 12/02/2013 Yes SULFA SULFA Unknown N/A 12/02/2013 Yes codeine [id number] Drug Allergy Severe SEVERE CONSTIPA 01/26/2019 Yes IVP DYE IVP DYE Severe ANAPHYLAXIS 01/26/2019 Yes SULFA SULFA Mild HEADACHE 01/26/2019 Medications There is no data. Problems Date Dx Coded Attending Type Code Diagnosis Diagnosed By 10/20/2013 ANDRES MCMAHON MD Ot 785.0 TACHYCARDIA NOS 10/20/2013 ANDRES MCMAHON MD Ot 785.1 PALPITATIONS 08/20/2014 Ot 562.10 08/20/2014 Ot 789.00 08/26/2014 Ot 455.0 08/26/2014 Ot 455.3 08/26/2014 Ot V76.51 10/07/2014 Ot 455.6 10/07/2014 Ot V72.84 10/07/2014 Ot V76.51 03/27/2017 ANDRES MCMAHON MD Ot 784.0 HEADACHE 03/27/2017 ANDRES MCMAHON MD Ot V17.49 FAMILY HISTORY OF OTHER CARDIOVASCULAR D 03/27/2017 ANRDES MCMAHON MD Ot V49.81 ASYMPT POSTMENOPAUSAL STATUS (AGE-RELATE 03/27/2017 ANDRES MCMAHON MD Ot V82.81 SCREENING FOR OSTEOPOROSIS 03/27/2017 INDIA OLGUIN MD Ot 244.9 HYPOTHYROIDISM NOS 03/27/2017 INDIA OLGUIN MD Ot 272.0 PURE HYPERCHOLESTEROLEM 03/27/2017 INDIA OLGUIN MD Ot 355.0 SCIATIC NERVE LESION 03/27/2017 INDIA OLGUIN MD Ot 401.9 HYPERTENSION NOS 03/27/2017 INDIA OLGUIN MD Ot 530.11 REFLUX ESOPHAGITIS 03/27/2017 INDIA OLGUIN MD Ot 553.3 DIAPHRAGMATIC HERNIA 03/27/2017 INDIA OLGUIN MD, Ot V58.69 OTH MED,LT,CURRENT USE 03/27/2017 INDIA OLGUIN MD Ot V72.84 EXAM PRE-OPERATIVE NOS 03/27/2017 Ot 785.0 TACHYCARDIA NOS 03/27/2017 Ot 785.1 PALPITATIONS 04/10/2017 OLAMIDENDCODY MERLOS JOANA S Ot Z12.31 ENCNTR SCREEN MAMMOGRAM FOR MALIGNANT NE 12/10/2017 ANDRES MCMAHON MD Ot 784.0 HEADACHE 12/10/2017 ANDRES MCMAHON MD Ot V17.49 FAMILY HISTORY OF OTHER CARDIOVASCULAR D 12/10/2017 ANDRES MCMAHON MD Ot V49.81 ASYMPT POSTMENOPAUSAL STATUS (AGE-RELATE 12/10/2017 ANDRES MCMAHON MD Ot V82.81 SCREENING FOR OSTEOPOROSIS 12/10/2017 INDIA OLGUIN MD Ot 244.9 HYPOTHYROIDISM NOS 12/10/2017 INDIA OLGUIN MD Ot 272.0 PURE HYPERCHOLESTEROLEM 12/10/2017 INDIA OLGUIN MD Ot 355.0 SCIATIC NERVE LESION 12/10/2017 INDIA OLGUIN MD Ot 401.9 HYPERTENSION NOS 12/10/2017 INDIA OLGUIN MD Ot 530.11 REFLUX ESOPHAGITIS 12/10/2017 INDIA OLGUIN MD Ot 553.3 DIAPHRAGMATIC HERNIA 12/10/2017 INDIA OLGUIN MD, Ot V58.69 OTH MED,LT,CURRENT USE 12/10/2017 INDIA OLGUIN MD Ot V72.84 EXAM PRE-OPERATIVE NOS 12/10/2017 Ot 785.0 TACHYCARDIA NOS 12/10/2017 Ot 785.1 PALPITATIONS 12/10/2017 OLAMIDENDER , JOANA S Ot Z12.31 ENCNTR SCREEN MAMMOGRAM FOR MALIGNANT NE 12/11/2017 OLAMIDENDER DO JOANA S Ot R05 COUGH 12/11/2017 ORENDER DO JOANA S Ot R09.89 OTH SYMPTOMS AND SIGNS INVOLVING THE CIR 12/11/2017 ORENDER DO, JOANA S Ot R05 COUGH 12/11/2017 ORENDER DO, JOANA S Ot R09.89 OTH SYMPTOMS AND SIGNS INVOLVING THE CIR 12/12/2017 ORENDER DO, JOANA S Ot R05 COUGH 12/12/2017 ORENDER DO, JOANA S Ot R09.89 OTH SYMPTOMS AND SIGNS INVOLVING THE CIR 12/12/2017 ORENDER DO, JOANA S Ot R05 COUGH 12/12/2017 ORENDER DO, JOANA S Ot R09.89 OTH SYMPTOMS AND SIGNS INVOLVING THE CIR 12/18/2017 ORENDER DO, JOANA S Ot Z12.31 ENCNTR SCREEN MAMMOGRAM FOR MALIGNANT NE 12/18/2017 ORENDER DO, JOANA S Ot Z12.31 ENCNTR SCREEN MAMMOGRAM FOR MALIGNANT NE 12/24/2017 ORENDER DO, JOANA S Ot Z12.31 ENCNTR SCREEN MAMMOGRAM FOR MALIGNANT NE 12/24/2017 ORENDER DO, JOANA S Ot Z12.31 ENCNTR SCREEN MAMMOGRAM FOR MALIGNANT NE 12/24/2017 ORENDER DO, JOANA S Ot Z12.31 ENCNTR SCREEN MAMMOGRAM FOR MALIGNANT NE 12/24/2017 ORENDER DO, JOANA S Ot Z12.31 ENCNTR SCREEN MAMMOGRAM FOR MALIGNANT NE 12/24/2017 ORENDER DO, JOANA S Ot R05 COUGH 12/24/2017 ORENDER DO, JOANA S Ot R09.89 OTH SYMPTOMS AND SIGNS INVOLVING THE CIR 12/24/2017 ORENDER DO, JOANA S Ot Z12.31 ENCNTR SCREEN MAMMOGRAM FOR MALIGNANT NE 12/24/2017 ORENDER DO, JOANA S Ot Z12.31 ENCNTR SCREEN MAMMOGRAM FOR MALIGNANT NE 12/26/2017 ORENDER DO, JOANA S Ot Z12.31 ENCNTR SCREEN MAMMOGRAM FOR MALIGNANT NE 01/17/2018 ORENDER DO, JOANA S Ot Z12.31 ENCNTR SCREEN MAMMOGRAM FOR MALIGNANT NE 06/26/2018 SALOME TRUJILLO, ANDRES Gomez Ot 784.0 HEADACHE 06/26/2018 ANDRES MCMAHON MD Ot V17.49 FAMILY HISTORY OF OTHER CARDIOVASCULAR D 06/26/2018 ANDRES MCMAHON MD Ot V49.81 ASYMPT POSTMENOPAUSAL STATUS (AGE-RELATE 06/26/2018 ANDRES MCMAHON MD Ot V82.81 SCREENING FOR OSTEOPOROSIS 06/26/2018 INDIA OLGUIN MD Ot 244.9 HYPOTHYROIDISM NOS 06/26/2018 INDIA OLGUIN MD Ot 272.0 PURE HYPERCHOLESTEROLEM 06/26/2018 INDIA OLGUIN MD Ot 355.0 SCIATIC NERVE LESION 06/26/2018 INDIA OLGUIN MD Ot 401.9 HYPERTENSION NOS 06/26/2018 INDIA OLGUIN MD Ot 530.11 REFLUX ESOPHAGITIS 06/26/2018 INDIA OLGUIN MD Ot 553.3 DIAPHRAGMATIC HERNIA 06/26/2018 INDIA OLGUIN MD Ot V58.69 OTH MED,LT,CURRENT USE 06/26/2018 INDIA OLGUIN MD Ot V72.84 EXAM PRE-OPERATIVE NOS 06/26/2018 Ot 785.0 TACHYCARDIA NOS 06/26/2018 Ot 785.1 PALPITATIONS 06/26/2018 ORENDER DO, JOANA S Ot Z12.31 ENCNTR SCREEN MAMMOGRAM FOR MALIGNANT NE 06/26/2018 ORENDER DO, JOANA S Ot R05 COUGH 06/26/2018 ORENDER DO, JOANA S Ot R09.89 OTH SYMPTOMS AND SIGNS INVOLVING THE CIR 06/26/2018 ORENDER DO, JOANA S Ot Z12.31 ENCNTR SCREEN MAMMOGRAM FOR MALIGNANT NE 07/28/2018 ORENDER DO, JOANA S Ot I49.9 CARDIAC ARRHYTHMIA, UNSPECIFIED 07/29/2018 ORENDER DO, JOANA S Ot I49.9 CARDIAC ARRHYTHMIA, UNSPECIFIED 07/29/2018 ORENDER DO, JOANA S Ot I49.9 CARDIAC ARRHYTHMIA, UNSPECIFIED 08/08/2018 ORENDER DO, JOANA S Ot I49.9 CARDIAC ARRHYTHMIA, UNSPECIFIED 10/17/2018 CHRISTY VALENTINO, VINCENZO Omalley Ot M41.84 OTHER FORMS OF SCOLIOSIS, THORACIC REGIO 10/30/2018 CHRISTY VALENTINO, VINCENZO Omalley Ot M41.84 OTHER FORMS OF SCOLIOSIS, THORACIC REGIO 12/11/2018 ANDRES MCMAHON MD Ot 784.0 HEADACHE 12/11/2018 ANDRES MCMAHON MD Ot V17.49 FAMILY HISTORY OF OTHER CARDIOVASCULAR D 12/11/2018 ANDRES MCMAHON MD Ot V49.81 ASYMPT POSTMENOPAUSAL STATUS (AGE-RELATE 12/11/2018 ANDRES MCMAHON MD Ot V82.81 SCREENING FOR OSTEOPOROSIS 12/11/2018 INDIA OLGUIN MD Ot 244.9 HYPOTHYROIDISM NOS 12/11/2018 INDIA OLGUIN MD Ot 272.0 PURE HYPERCHOLESTEROLEM 12/11/2018 INDIA OLGUIN MD Ot 355.0 SCIATIC NERVE LESION 12/11/2018 INDIA OLGUIN MD Ot 401.9 HYPERTENSION NOS 12/11/2018 INDIA OLGUIN MD Ot 530.11 REFLUX ESOPHAGITIS 12/11/2018 INDIA OLGUIN MD Ot 553.3 DIAPHRAGMATIC HERNIA 12/11/2018 INDIA OLGUIN MD Ot V58.69 OTH MED,LT,CURRENT USE 12/11/2018 INDIA OLGUIN MD Ot V72.84 EXAM PRE-OPERATIVE NOS 12/11/2018 Ot 785.0 TACHYCARDIA NOS 12/11/2018 Ot 785.1 PALPITATIONS 12/11/2018 KONG REBOLLEDO DOQUELINE S Ot Z12.31 ENCNTR SCREEN MAMMOGRAM FOR MALIGNANT NE 12/11/2018 OLAMIDENDER KONG MERLOSJOANA S Ot R05 COUGH 12/11/2018 OLAMIDENDER DO JOANA S Ot R09.89 OTH SYMPTOMS AND SIGNS INVOLVING THE CIR 12/11/2018 OLAMIDENDER DO JOANA S Ot Z12.31 ENCNTR SCREEN MAMMOGRAM FOR MALIGNANT NE 12/11/2018 KONG REBOLLEDO DOQUELINE S Ot I49.9 CARDIAC ARRHYTHMIA, UNSPECIFIED 12/11/2018 CHRISTY GUERREROT, VINCENZO Omalley Ot M41.84 OTHER FORMS OF SCOLIOSIS, THORACIC REGIO 12/12/2018 OLAMIDENDER DO JOANA S Ot E04.9 NONTOXIC GOITER, UNSPECIFIED 12/12/2018 OLAMIDENDER DO JOANA S Ot R09.89 OTH SYMPTOMS AND SIGNS INVOLVING THE CIR 01/08/2019 OLAMIDENDER DO JOANA S Ot E04.9 NONTOXIC GOITER, UNSPECIFIED 01/08/2019 OLAMIDENDER DO, JOANA S Ot R09.89 OTH SYMPTOMS AND SIGNS INVOLVING THE CIR 01/09/2019 KENNETH REBOLLEDO DOLINE S Ot Z12.31 ENCNTR SCREEN MAMMOGRAM FOR MALIGNANT NE 01/26/2019 Ot 785.0 TACHYCARDIA NOS 01/26/2019 Ot 785.1 PALPITATIONS 01/26/2019 Ot 785.0 TACHYCARDIA NOS 01/26/2019 Ot 785.1 PALPITATIONS Procedures There is no data. Results There is no data. Encounters ACCT No. Visit Date/Time Discharge Status Pt. Type Provider Facility Loc./Unit Complaint 12/02/15 01/12/2019 15:43:39 01/12/2019 23:59:59 CLS Outpatient Kenneth Rebolledoline Mando. [id number] 01/26/2019 06:01:00 01/26/2019 12:50:00 DIS Outpatient INDIA OLGUIN MD [facility] PREOP DYSPHAGIA [id number] 01/07/2019 10:25:00 01/07/2019 23:59:59 CLS Outpatient KONG REBOLLEDO DOQUELINE S [facility] RAD SCREENING [id number] 12/11/2018 07:55:00 12/11/2018 23:59:59 CLS Outpatient REFUGIO MERLOS JOANA S [facility] RAD GLOBUS SENSATION [id number] 10/10/2018 13:54:00 10/10/2018 23:59:59 CLS Outpatient VINCENZO HARRISON DPT [facility] RAD THORACIC PAIN [id number] 06/26/2018 12:35:00 06/26/2018 23:59:59 CLS Outpatient REFUGIO MERLOS JOANA S [facility] CARD CARDIAC ARRYTHYMIA [id number] 12/18/2017 08:38:00 12/18/2017 23:59:59 CLS Outpatient REFUGIO MERLOS JOANA S [facility] RAD SCREENING [id number] 12/18/2017 08:37:00 12/18/2017 23:59:59 CLS Preadmit REFUGIO DO JOANA S [facility] RAD LUNG APICES NODULES,COUGH [id number] 12/10/2017 12:35:00 12/10/2017 23:59:59 CLS Outpatient JOANA REBOLLEDO DO S [facility] RAD COUGH [id number] 04/01/2017 10:45:00 04/01/2017 23:59:59 CLS Outpatient JOANA REBOLLEDO DO S [facility] RAD SCREENING [id number] 12/02/2013 07:22:00 12/02/2013 23:59:59 CLS Outpatient INDIA OLGUIN MD [facility] SDC REFLUX [id number] 11/26/2013 07:25:00 11/26/2013 23:59:59 CLS Outpatient INDIA OLGUIN MD [facility] PREOP REFLUX [id number] 07/22/2013 10:48:00 10/20/2013 00:01:00 DIS Outpatient ANDRES MCMAHON MD [facility] CARD TACHYCARDIA,PALPITATIONS [id number] 08/06/2013 11:20:00 08/06/2013 23:59:59 CLS Outpatient ANDRES MCMAHON MD [facility] RAD MENOPAUSE [id number] 07/27/2013 09:45:00 07/27/2013 23:59:59 CLS Outpatient ANDRES MCMAHON MD [facility] RAD INCREASE HEADACHE, FAM HX ANYURSM [id number] 01/28/2019 12:45:00 PEN Preadmit INDIA OLGUIN MD [facility] ENDO DYSPHAGIA, N/V [id number] 09/23/2014 10:06:00 Document Registration [id number] 08/23/2014 12:04:00 Document Registration [id number] 08/20/2014 10:20:00 Document Registration [id number] 08/20/2014 10:20:00 Document Registration [id number] 10/21/2013 10:30:00 Document Registration [id number] 08/28/2010 15:04:00 Document Registration
[2019-01-28] MEDS ORDERED: ACETAMINOPHEN 325 MG TABLET PO PRN (11:30)
[2019-01-28] MEDS ORDERED: ONDANSETRON 4 MG/2 ML (SDV) Z0FRAN IVP PRN (11:30)
[2019-01-28] MEDS ORDERED: morphine INJ 10 MG/ML 1ML (SYR OR VIAL) IVP PRN ×2 (11:30)
[2019-01-28] MEDS ORDERED: HYDROcodone/APAP 5 MG/325 MG (LORTAB) TAB PO PRN (11:30)
[2019-01-28] MEDS ORDERED: NS IV 500 ML 500 ML IV PRN (11:51)
[2019-01-28] MEDS ORDERED: fentaNYL INJECTION 100 MCG/2 ML AMP IVP ONE (12:00)
[2019-01-28] MEDS ORDERED: MIDAZOLAM 2 MG/2 ML (VERSED) VIAL IVP ONE (12:00)
[2019-01-28] MEDS ORDERED: HURRICAINE EXT TUBE (BENZOCAINE) XX PRN (12:00)
[2019-01-28] MEDS ORDERED: LIDOCAINE JELLY 2% 6 ML SYRINGE MM PRN (12:00)
--- NOTE | 2019-01-28 13:50 | Progress Note-Post Operative ---
Post-Operative Progess Note Surgeon (s)/Reproductive Surgeon (s) Surgeon INDIA OLGUIN MD Reproductive Surgeon: none Pre-Operative Diagnosis GERD, dysphagia Post-Operative Diagnosis reflux esophagitis(stage 2), distal esoph stricture v. achalasia, small HH(1cm), mild gastritis. Procedure & Operative Findings Date of Procedure 01/28/19 Procedure Performed/Findings EGD with bx and balloon dilatation. Anesthesia Type cs Estimated Blood Loss Estimated blood loss (mL): minimal Specimens/Packing Specimens Removed ge jxn, antrum INDIA OLGUIN MD Jan 28, 2019 13:50
--- NOTE | 2019-01-28 16:42 | OPERATIVE REPORT ---
DATE OF SERVICE: 01/28/2019 ATTENDING PRIMARY CARE PHYSICIAN: Dr. Rebolledo. PREOPERATIVE DIAGNOSES: 1. Dysphagia. 2. Gastroesophageal reflux disease. POSTOPERATIVE DIAGNOSES: Reflux esophagitis stage II, distal esophageal stricture versus achalasia. PROCEDURE: EGD with biopsy and balloon dilatation. SURGEON: India Olguin MD ANESTHESIA: Conscious sedation. ESTIMATED BLOOD LOSS: Minimal. FINDINGS: Increased lower esophageal sphincter tone versus mild stricture, small hiatal hernia approximately 1.5 cm in size, mild gastritis. DISPOSITION: The patient tolerated the procedure well. INDICATIONS: The patient is a 68-year-old female known to us. She has had issues with dysphagia. She reports that after taking in solids as well as liquids, she will feel a pressure sensation in the epigastric region as well as the chest. She then develops hiccupping as well as heaving; however, no episodes of vomiting. She states that she had a trigger finger release and was placed on antibiotics and did not tolerate this well and was switched over to another antibiotic and then developed Clostridium difficile colitis and was treated for 6 weeks. During that timeframe, she did not feel herself and did notice a change in diet. She reports that this dysphagia as well as dry heaving has been more symptomatic in the past 6 weeks. DESCRIPTION OF PROCEDURE: The patient was brought to the endoscopy suite, laid in left lateral decubitus position with the head slightly elevated. After adequate IV pain and sedating medications and conscious sedation anesthesia, a mouthpiece was applied. The endoscope was placed in the mouth, visualized the pharynx and hypopharyngeal region. Vocal cords, epiglottis and vallecula identified and appeared to be normal. The endoscope was gently intubated into the esophageal opening and esophagus was insufflated. The endoscope was then advanced to the first, second and third portion of the esophagus. At the level of the GE junction, a reflux esophagitis stage II was identified. There was also either a mild distal esophageal stricture versus increased lower esophageal tone hypertonicity consistent with achalasia. A biopsy was taken of the GE junction with forceps with visualization of good hemostasis. The endoscope was then advanced into the stomach and the endoscope retroflexed, visualizing a small hiatal hernia approximately 1.5 cm in size. There was a mild gastritis. No formal ulcerations, polyps or any neoplasms. A biopsy was taken of the antrum to rule out H. pylori with visualization of good hemostasis. The endoscope was then advanced to the pylorus and the first and second portion of the duodenum, which appeared normal and no distal obstructions. We then proceeded with dilatation of the lower esophagus. The balloon was placed in the stomach and pulled back to the area of the stricture. The balloon was then first dilated to 2 atmospheres of pressure with no resistance. We then proceeded to 4 atmospheres of pressure with mild to moderate resistance. We then proceeded to 6 atmospheres of pressure with moderate resistance and left this in place for approximately 60 seconds. The balloon was then desufflated and removed with visualization of good hemostasis as well as no mucosal tears. The endoscope was then slowly withdrawn while taking a second look and suctioning of residual air with no additional findings. The patient tolerated the procedure well. At this time, we are unsure if this was a mild distal esophageal stricture versus a mild achalasia. Hopefully, the balloon dilatation alone will help with her symptomatology; however, she may have reoccurrence. We will recommend further dilatation if so. She is already on Carafate and Protonix and we will also proceed with a trial of calcium channel marcelino in case if this is achalasia 30 mg p.o. 30 minutes before taking meals. We will have her follow up in the office in approximately 6 to 8 weeks. Job ID: [id number] DocumentID: [id number] Dictated Date: 01/28/2019 12:14:48 [employer] Date: 01/28/2019 16:41:19 Dictated By: INDIA OLGUIN MD MTDD
== END 2019-01-28 13:35 | disposition home or self-care (01) ==
LOC: ENDO 11:15
PROVIDERS: ATTEND Surgery
DX: K21.0 Gastro-esophageal reflux disease with esophagitis (principal); K22.2 Esophageal obstruction; K29.50 Unspecified chronic gastritis without bleeding; K31.9 Disease of stomach and duodenum, unspecified; E78.00 Pure hypercholesterolemia, unspecified; I10 Essential (primary) hypertension; E03.9 Hypothyroidism, unspecified; K64.2 Third degree hemorrhoids; K64.8 Other hemorrhoids; Z88.2 Allergy status to sulfonamides; Z88.1 Allergy status to other antibiotic agents; Z88.8 Allergy status to other drugs, medicaments and biological substances; Z90.721 Acquired absence of ovaries, unilateral; Z79.899 Other long term (current) drug therapy; Z83.3 Family history of diabetes mellitus; Z82.3 Family history of stroke; Z82.49 Family history of ischemic heart disease and other diseases of the circulatory system

== ENCOUNTER → 2019-03-17 | Outpatient (CLI) | payer MEDICARE ==
--- NOTE | 2019-03-17 16:34 | Diagnostic Imaging Report ---
INDICATION: 68-year-old asymptomatic postmenopausal female. COMPARISON: 08/06/2013. FINDINGS: AP Spine L1-L4: [BMD (g/cm2): N/A] [T-Score: N/A] [Z-Score: N/A] [BMD Previous: N/A] [BMD % Change: N/A] LT Hip Neck: [BMD (g/cm2): 0.866] [T-Score: -1.2] [Z-Score: 0.2] LT Hip Total: [BMD (g/cm2):0.982] [T-Score:-0.2] [Z-Score: 0.9] [BMD Previous: 0.999] [BMD % Change: -1.5] RT Hip Neck: [BMD (g/cm2):0.935] [T-Score:-0.7] [Z-Score:0.7] RT Hip Total: [BMD (g/cm2):1.044] [T-score:0.3] [Z-Score:1.4] [BMD Previous:1.027] [BMD % Change:1.7] *Indicates significant change from prior examination based on 95% confidence level. World Health Organization criteria for BMD interpretation classify patients as Normal (T-score at or above -1.0), Osteopenic (T-score between -1.0 and -2.5) or Osteoporotic (T-score at or below -2.5). LIMITATIONS AND MODIFICATION: Lumbar spine was unable to be utilized due to instrumented lumbar fusion. IMPRESSION: 1. Osteopenia (Low bone mass). 2. No Significant change in bone mineral density since prior examination. 3. See below National Osteoporosis Foundation guidelines on when to potentially initiate pharmacologic therapy. Based on the National Osteoporosis Foundation Guidelines, pharmacologic treatment should be initiated in any of the following, unless clinical conditions suggest otherwise: * Any patient with prior fragility fracture of the hip or vertebrae. A spine fracture indicates 5X risk for subsequent spine fracture and 2X risk for subsequent hip fracture. * Osteoporosis (T-score <-2.5). * Postmenopausal women and men age 50 and older with low bone mass/osteopenia (T-score between -1.0 and -2.5) by DXA and 10-year major osteoporotic fracture greater than 20% or a 10-year probability of hip fracture greater than 3%. These fracture risks are supplied above in the FRAX score, if applicable. * Clinician judgement and/or patient preferences may indicate treatment for people with 10-year fracture probabilities above or below these levels. Dictated by: Dictated on workstation # [id number]
== END ==
LOC: RAD 12:24
PROVIDERS: ATTEND Family Medicine
DX: M85.88 Other specified disorders of bone density and structure, other site (principal); Z78.0 Asymptomatic menopausal state
CPT/HCPCS: 77080

== ENCOUNTER → 2020-01-14 | Outpatient (CLI) | payer MEDICARE ==
--- NOTE | 2020-01-14 13:11 | Diagnostic Imaging Report ---
INDICATION: Routine screening. COMPARISON: 01/07/2019 and 12/24/2017. TECHNIQUE: 2D and 3D bilateral screening mammography was performed with CAD. FINDINGS: Scattered fibroglandular densities are identified bilaterally. There are subpectoral breast implants bilaterally. The implant contours remain smooth. No dominant mass or malignant appearing microcalcifications are seen. There are benign calcifications bilaterally. The axillae are unremarkable. IMPRESSION: No mammographic features suspicious for malignancy are identified. ACR BI-RADS Category 2: Benign findings. Result letter will be mailed to the patient. Note: At least 10% of breast cancer is not imaged by mammography. Dictated by: Dictated on workstation # [id number]
== END ==
LOC: RAD 11:08
PROVIDERS: ATTEND Nurse Practitioner Family
DX: Z12.31 Encounter for screening mammogram for malignant neoplasm of breast (principal)
CPT/HCPCS: 77063; 77067

== ENCOUNTER → 2021-01-16 | Outpatient (CLI) | payer MEDICARE, OTHER ==
[~2021-01-16] MED LIST changes: -PANT40TA3 PO; +PANT40TA52 PO
--- NOTE | 2021-01-16 16:23 | Diagnostic Imaging Report ---
INDICATION: Routine screening. COMPARISON: 01/14/2020 and 01/07/2019. TECHNIQUE: 2D and 3D bilateral screening mammography was performed with CAD. FINDINGS: Bilateral breast implants are noted. The implant contours are smooth. Scattered fibroglandular densities are identified bilaterally. There are scattered benign calcifications. No mass or malignant-appearing microcalcifications are seen. The axillae are unremarkable. IMPRESSION: No mammographic features suspicious for malignancy are identified. ACR BI-RADS Category 2: Benign findings. Result letter will be mailed to the patient. Note: At least 10% of breast cancer is not imaged by mammography. Dictated by: Dictated on workstation # [id number]
== END ==
LOC: RAD 09:05
PROVIDERS: ATTEND Family Medicine
DX: Z12.31 Encounter for screening mammogram for malignant neoplasm of breast (principal)
CPT/HCPCS: 77063; 77067

== ENCOUNTER → 2021-07-11 | Outpatient (CLI) | payer MEDICARE, OTHER ==
--- NOTE | 2021-07-11 09:55 | Diagnostic Imaging Report ---
CLINICAL INDICATION: Patient with bilateral carotid artery stenosis. Comparison: None Exam: Real-time ultrasound carotid Doppler duplex imaging is performed bilaterally with multiple real-time grayscale images obtained in various projections. Additional spectral analysis and color Doppler duple images were also obtained. Peak systolic velocity, ICA/CCA peak systolic ratio, spectral analysis, and vascular morphology are studied. Findings: ARTERY VELOCITY Right Left CCA 0.70 m/s 0.80 m/s ICA 0.94 m/s 0.91 m/s ECA 0.79 m/s 0.79 m/s ICA/CCA 1.36 1.14 VERT.ART Antegrade Antegrade There is bilateral carotid artery atherosclerotic disease with no significant grayscale or Doppler evidence of stenosis. Impression: There is bilateral carotid artery atherosclerotic disease with no grayscale or Doppler evidence of significant vascular stenosis. Dictated by: Dictated on workstation # [id number]
== END ==
LOC: RAD 08:45
PROVIDERS: ATTEND Family Medicine
DX: I65.23 Occlusion and stenosis of bilateral carotid arteries (principal)
CPT/HCPCS: 93880

== ENCOUNTER → 2022-01-17 | Outpatient (CLI) | payer MEDICARE, OTHER ==
--- NOTE | 2022-01-17 13:38 | Diagnostic Imaging Report ---
EXAMINATION: 3D bilateral screening mammogram with CAD. INDICATION: Screening. COMPARISON: This study was compared to the prior exams of 01/16/2021, 01/14/2020, and 01/07/2019. PERSONAL HISTORY: At this time, there are no current complaints. FINDINGS: As noted on the previous exam, there are bilateral breast implants in place. The implants seem stable when compared to the prior exam. There is no evidence for an extracapsular rupture of either implant. The fibroglandular tissue overlying the implants is heterogeneously dense. This does limit the sensitivity of this exam. IMPRESSION: There is no evidence for malignancy. ACR BI-RADS Category 1: Negative. Result letter will be mailed to the patient. Note: At least 10% of breast cancer is not imaged by mammography. Dictated by: Dictated on workstation # [id number]
== END ==
LOC: RAD 09:48
PROVIDERS: ATTEND Family Medicine
DX: Z12.31 Encounter for screening mammogram for malignant neoplasm of breast (principal)
CPT/HCPCS: 77063; 77067

== ENCOUNTER → 2022-06-13 | Outpatient (CLI) | payer MEDICARE, OTHER ==
[~2022-06-13] MED LIST changes: -UBID300C PO; +UBID300C2 PO
[2022-06-13 11:22] VITALS: BP 142/70
--- NOTE | 2022-06-13 12:40 | Cardiology Stress Test Report ---
Stress Test Report Date of Procedure/Referring: Date of Procedure: Jun 13, 2022 PCP Cindi Rebolledo DO Admitting Physician Admitting Physician: Attending Physician: Cindi Rebolledo DO Indications: CP Baseline Heart Rate: 62 Baseline Blood Pressure: Blood Pressure Systolic: 142 Blood Pressure Diastolic: 70 Baseline EKG: Baseline EKG: NSR Summary/Conclusion: Summary: In summary, the patient started exercising with a baseline heart rate, blood pressure and EKG mentioned above Patient was able to exercise for a total of 7 minutes on Gigi protocol, METs 8.5 Maximum heart rate 150 Maximum blood pressure 181/99 Stress EKG, Minimal nondiagnostic changes Recovery EKG , Return to baseline Conclusion: 1. Good exercise tolerance for a total of 7 minutes on Gigi protocol, 8.5 METs, achieving 90 percent of maximum expected heart rate 2. Minimal nondiagnostic EKG changes with exercise returned to baseline during recovery 3. Occasional PVCs noted during test. Copy Copies To 1: CINDI REBOLLEDO BASHAR J MD Jun 13, 2022 12:40
== END ==
LOC: CARD 09:00
PROVIDERS: ATTEND Family Medicine
DX: I49.3 Ventricular premature depolarization (principal); R07.9 Chest pain, unspecified
CPT/HCPCS: 93017; C8929; 93306

== ENCOUNTER → 2022-08-28 | Outpatient (CLI) | payer MEDICARE, OTHER ==
--- NOTE | 2022-08-28 08:57 | Diagnostic Imaging Report ---
PROCEDURE: CT abdomen and pelvis without contrast. TECHNIQUE: Multiple contiguous axial images were obtained through the abdomen and pelvis without the use of intravenous contrast. Auto Exposure Controls were utilized during the CT exam to meet ALARA standards for radiation dose reduction. INDICATION: Diverticulitis and left-sided abdominal pain. No prior studies are available for comparison. The lung bases are clear. The liver and gallbladder are unremarkable. Pancreas and spleen are unremarkable. No adrenal mass is detected. No renal calculi or hydronephrosis is detected. Aorta is nonaneurysmal. Bowel loops appear to be nonobstructed. No inflammatory changes are seen to suggest diverticulitis. There is no ascites. There is a cyst in the left adnexa measuring 2.8 cm, likely ovarian. The bladder is decompressed. Uterus appears to be surgically absent. Postoperative changes posterior instrumented fusion in the lower lumbar spine are noted. IMPRESSION: Essentially unremarkable noncontrast CT of the abdomen and pelvis apart from a small left adnexal cyst. No acute feature is identified. Dictated by: Dictated on workstation # [id number]
== END ==
LOC: RAD 08:12
PROVIDERS: ATTEND Family Medicine
DX: K57.92 Diverticulitis of intestine, part unspecified, without perforation or abscess without bleeding (principal); N83.202 Unspecified ovarian cyst, left side; Z90.710 Acquired absence of both cervix and uterus
CPT/HCPCS: 74176

== ENCOUNTER → 2022-09-17 | Outpatient (CLI) | payer MEDICARE, OTHER ==
--- NOTE | 2022-09-17 14:01 | Diagnostic Imaging Report ---
PROCEDURE: Pelvic comp/transvaginal sonogram. TECHNIQUE: Complete transabdominal and transvaginal pelvic ultrasound was performed. In addition, limited pelvic Doppler was performed. INDICATION: Left ovarian mass. Patient had prior hysterectomy in 1982. Uterus is surgically absent. Right ovary is absent. There is a cystic mass in the left adnexa measuring 3.2 x 2.4 x 2.5 cm. This does have a thin internal septation. No abnormal vascularity is seen. No normal ovarian tissue is identified. There is no free fluid. IMPRESSION: Surgically absent uterus and right ovary. There is a septated cystic mass in the left adnexa which may be ovarian. No abnormal soft tissue thickening, nodularity or vascularity is seen. Dictated by: Dictated on workstation # [id number]
== END ==
LOC: RAD 12:35
PROVIDERS: ATTEND Family Medicine
DX: N83.8 Other noninflammatory disorders of ovary, fallopian tube and broad ligament (principal); Z90.721 Acquired absence of ovaries, unilateral
CPT/HCPCS: 76830; 76856

== ENCOUNTER → 2022-09-17 | Outpatient (CLI) | payer MEDICARE, OTHER | LOC: LAB 20:15 | PROVIDERS: ATTEND Family Medicine | DX: N83.9 Noninflammatory disorder of ovary, fallopian tube and broad ligament, unspecified (principal) | CPT/HCPCS: 36415; 86304 ==

== ENCOUNTER → 2022-11-28 | Outpatient (CLI) | payer MEDICARE, OTHER ==
--- NOTE | 2022-11-28 13:41 | Diagnostic Imaging Report ---
PROCEDURE: Pelvic comp/transvaginal sonogram. TECHNIQUE: Complete transabdominal and transvaginal pelvic ultrasound was performed. In addition, limited pelvic Doppler was performed. INDICATION: Left adnexal cystic mass, follow-up. Correlation is made with prior ultrasound from 09/17/2022. Uterus is surgically absent. Reportedly both ovaries are surgically absent as well. Cystic lesion left adnexa is again noted measuring 3.1 x 2.3 x 2.5 cm, unchanged from prior. No associated vascularity with a lesion is identified on color Doppler. No free fluid is detected. IMPRESSION: Stable left adnexal cystic lesion when compared with examination from 09/17/2022. Dictated by: Dictated on workstation # [id number]
== END ==
LOC: RAD 12:03
DX: N94.89 Other specified conditions associated with female genital organs and menstrual cycle (principal); Z90.710 Acquired absence of both cervix and uterus; Z90.722 Acquired absence of ovaries, bilateral
CPT/HCPCS: 76830; 76856

== ENCOUNTER → 2023-01-24 | Outpatient (CLI) | payer MEDICARE, OTHER ==
--- NOTE | 2023-01-24 10:12 | Diagnostic Imaging Report ---
INDICATION: Routine screening. COMPARISON: 01/17/2022 and 01/16/2021. FINDINGS: Bilateral subpectoral breast implants are again noted. The implant contours remain smooth. Scattered fibroglandular densities are identified in both breasts. The overall parenchymal pattern appears stable. No mass or malignant-appearing microcalcifications are seen. There are occasional benign calcifications throughout both breasts. The axillae are unremarkable. IMPRESSION: No mammographic features suspicious for malignancy are identified. ACR BI-RADS Category 2: Benign findings. Result letter will be mailed to the patient. Note: At least 10% of breast cancer is not imaged by mammography. Dictated by: Dictated on workstation # [id number]
== END ==
LOC: RAD 07:27
PROVIDERS: ATTEND Family Medicine
DX: Z12.31 Encounter for screening mammogram for malignant neoplasm of breast (principal)
CPT/HCPCS: 77063; 77067

== ENCOUNTER → 2023-05-27 | Outpatient (CLI) | payer MEDICARE, OTHER ==
--- NOTE | 2023-05-27 16:27 | Diagnostic Imaging Report ---
PROCEDURE: US Non-ob pelvis comp/trans. TECHNIQUE: Multiple realtime grayscale images were obtained of the pelvis in various projections endovaginally. Transabdominal imaging was also performed. INDICATION: Left adnexal mass seen on prior study. COMPARISON: 11/28/2022 Patient has undergone hysterectomy and oophorectomy. Cystic left adnexal mass is again identified and now measures 2.5 x 2.8 x 2.9 cm. Prior measurement was 3.1 x 2.3 x 2.5 cm. No mass lesion is seen in the right adnexal region. There is no significant free fluid. IMPRESSION: Given differences in imaging technique, the left adnexal cystic structure has not significantly changed. This suggests a nonaggressive nature. Dictated by: Dictated on workstation # [id number]
== END ==
LOC: RAD 15:01
PROVIDERS: ATTEND Obstetrics & Gynecology Gynecologic Oncology
DX: N94.89 Other specified conditions associated with female genital organs and menstrual cycle (principal)
CPT/HCPCS: 76830; 76856